=== PATIENT | female | born 1935 | race Caucasian/White ===

== ENCOUNTER 2021-05-03 09:16 | Emergency (ER) | payer MEDICARE ==
[2021-05-03] MEDS ORDERED: traMADol 50 MG Tab PO ONE (09:47)
[2021-05-03] MEDS ORDERED: traMADol 50 MG Tab PO STA (10:05)
[2021-05-03] MEDS ORDERED: Morphine 4 MG/ML VIAL IM STA (10:54)
--- NOTE | 2021-05-03 11:30 | EDM.PDOC ---
ED HPI GENERAL MEDICAL PROBLEM - General Chief Complaint: Lower Extremity Injury/Pain Time Seen by Provider: 05/03/21 09:25 Source of Information: Reports: Patient History Limitations: Reports: No Limitations - History of Present Illness INITIAL COMMENTS - FREE TEXT/NARRATIVE: Patient presented to the ED with her [id number] because of 10/10 left knee pain for the past week. She is taking tylenol 1000 mg and topical diclofenac which don't provide any relief. There is no recent trauma or injury. - Related Data Allergies Allergy/AdvReac Type Severity Reaction Status Date / Time No Known Allergies Allergy Verified 05/03/21 09:36 Home Meds: Home Meds Albuterol/Ipratropium [DuoNeb 3.0-0.5 MG/3 ML] 3 ml INH QID 05/03/21 [History] Diclofenac Sodium [Solaraze] 4 gm TP BID 05/03/21 [History] Digoxin [Lanoxin] 125 mcg PO DAILY 05/03/21 [History] Docusate Sodium/Sennosides [Senna Plus] 2 tab PO BID 05/03/21 [History] Furosemide [Lasix] 80 mg PO DAILY 05/03/21 [History] Morphine Sulfate [Morphine Sulfate ER] 15 mg PO BID PRN #15 tablet.er 05/03/21 [Rx] Potassium Chloride [Klor-Con M20] 20 meq PO DAILY 05/03/21 [History] Spironolactone [Aldactone] 25 mg PO DAILY 05/03/21 [History] Warfarin Sodium [Jantoven] 2 mg PO ASDIRECTED 05/03/21 [History] polyethylene glycoL 3350 [Clearlax] 17 gm PO ASDIRECTED 05/03/21 [History] traMADol [Ultram] 100 mg PO Q8H PRN #30 tab 05/03/21 [Rx] Social & Family History - Family History Family Medical History: No Pertinent Family History - Tobacco Use Tobacco Use Status *Q: Never Tobacco User - Caffeine Use Caffeine Use: Reports: Coffee - Recreational Drug Use Recreational Drug Use: No Review of Systems - Review of Systems Review Of Systems: See Below Constitutional: Reports: No Symptoms Eyes: Reports: No Symptoms Ears: Reports: No Symptoms Nose: Reports: No Symptoms Mouth/Throat: Reports: No Symptoms Respiratory: Reports: No Symptoms Cardiovascular: Reports: No Symptoms GI/Abdominal: Reports: No Symptoms Genitourinary: Reports: No Symptoms Musculoskeletal: Reports: Other (left knee pain) Neurological: Reports: No Symptoms ED EXAM, GENERAL - Physical Exam Exam: See Below Exam Limited By: No Limitations General Appearance: Alert, No Apparent Distress Ears: Normal External Exam, Normal Canal Nose: Normal Inspection, Normal Mucosa, No Blood Throat/Mouth: Normal Inspection, Normal Lips, Normal Teeth Head: Atraumatic, Normocephalic Neck: Normal Inspection, Supple, Non-Tender, Full Range of Motion Respiratory/Chest: No Respiratory Distress, Lungs Clear, Normal Breath Sounds Cardiovascular: Normal Peripheral Pulses, Regular Rate, Rhythm, No Edema, No Gallop Back Exam: Normal Inspection, Full Range of Motion Extremities: Other (tenderness of the entire left knee) Neurological: Alert, Oriented, CN II-XII Intact Course - Vital Signs Text/Narrative:: Tramadol 100 mg PO x1 Morphine 4 mg IM x1 Last Recorded V/S: Last Vital Signs Temp 36.7 C 05/03/21 09:17 Pulse 72 05/03/21 09:17 Resp 20 05/03/21 09:17 BP 156/68 H 05/03/21 09:17 Pulse Ox 95 05/03/21 09:17 - Orders/Labs/Meds Meds: Medications Discontinued Medications Generic Name Dose Route Start Last Admin Trade Name Didier PRN Reason Stop Dose Admin Morphine Sulfate 4 mg 05/03/21 10:54 05/03/21 11:06 Morphine 4 Mg/Ml Vial IM 05/03/21 10:55 4 mg NOW STA Administration Tramadol HCl 100 mg 05/03/21 09:47 Tramadol 50 Mg Tab PO 05/03/21 09:48 ONETIME ONE Tramadol HCl 100 mg 05/03/21 10:05 05/03/21 10:20 Tramadol 50 Mg Tab PO 05/03/21 10:06 100 mg NOW STA Administration Departure - Departure Time of Disposition: 11:25 Disposition: Home, Self-Care 01 Condition: Good Clinical Impression: DJD (degenerative joint disease) of knee, Arthritis pain - Discharge Information Prescriptions: Morphine Sulfate [Morphine Sulfate ER] 15 mg PO BID PRN #15 tablet.er PRN Reason: Pain traMADol [Ultram] 100 mg PO Q8H PRN #30 tab PRN Reason: Pain Instructions: Arthritis, [id number] Referrals: Billy Vasquez MD [Primary Care Provider] - Forms: ED Department Discharge Additional Instructions: Please read discharge instructions on DJD/Arthritic Pain Take tramadol 50 mg,2 tablets with Tylenol 1000 mg every 8 hours as needed for mild to moderate pain Take Morphine ER 15 mg twice daily as needed for severe pain Follow up with an Orthopedic doctor who might be able to help you with your knee pain Sepsis Event Note (ED) - Evaluation Sepsis Screening Result: No Definite Risk - Focused Exam Vital Signs: Vital Signs Temp Pulse Resp BP Pulse Ox 05/03/21 09:17 36.7 C 72 20 156/68 H 95
== END 2021-05-03 12:04 | disposition home or self-care (01) ==
LOC: FB.ED 09:16
DX: M17.12 Unilateral primary osteoarthritis, left knee (principal); Z79.899 Other long term (current) drug therapy
CPT/HCPCS: 96372; 99283; 99284; A9270-GY; J2270

== ENCOUNTER 2022-04-30 09:55 | Inpatient (IN) | payer MEDICARE ==
[2022-04-30] MEDS ORDERED: Furosemide 40 MG/4 ML VIAL IVPUSH ONE (10:55)
[2022-04-30 11:43] LABS: BASE EXCESS VENOUS,POC 1 mmol/L (-2 - 3+); PCO2 VENOUS,POC 44 mmHg (41-51); PH VENOUS,POC 7.39 pH Units (7.32-7.43)
[2022-04-30 11:54] LABS: ESTIMATED GFR 54 mL/min (>60)
[2022-04-30 12:06] LABS: CORONAVIRUS COVID-19 NAA NEGATIVE (NEGATIVE)
[2022-04-30] MEDS ORDERED: Warfarin Sliding Scale PO SCH (14:45)
[2022-04-30] MEDS: Furosemide 40 MG/4 ML VIAL IVPUSH SCH (15:32)
[2022-04-30] MEDS: Sodium Chloride 0.9% 10 ML Syringe FLUSH PRN (15:36)
[2022-04-30] MEDS ORDERED: WARFARIN 2 MG PO ONE (17:15)
[2022-04-30] MEDS ORDERED: Warfarin 3 MG Tab PO ONE (17:15)
[2022-04-30] MEDS: Albuterol/Ipratropium 3.0-0.5 MG/3 ML Neb Soln INH SCH ×2 (17:37→20:28)
[2022-04-30] MEDS ORDERED: Docusate Sodium 100 MG Cap PO SCH (21:00)
[2022-05-01 06:53] LABS: ESTIMATED GFR 61 mL/min (>60)
[2022-05-01] MEDS: Furosemide 40 MG/4 ML VIAL IVPUSH SCH ×2 (08:08→14:03)
[2022-05-01] MEDS: Spironolactone 25 MG Tab PO SCH (08:08)
[2022-05-01] MEDS: Docusate Sodium 100 MG Cap PO SCH ×2 (08:09→20:07)
[2022-05-01] MEDS: Albuterol/Ipratropium 3.0-0.5 MG/3 ML Neb Soln INH SCH ×4 (08:09→20:07)
[2022-05-01] MEDS: Digoxin 125 MCG Tab PO SCH (08:10)
[2022-05-01] MEDS: Potassium Chloride 20 MEQ Tab.ER PO SCH (08:10)
[2022-05-01] MEDS: Sodium Chloride 0.9% 10 ML Syringe FLUSH PRN (08:11)
[2022-05-01] MEDS ORDERED: Polyethylene Glycol 3350 Powder 17 GM Packet PO PRN (09:45)
[2022-05-01] MEDS: Acetaminophen 500 MG Tab PO SCH ×2 (10:54→20:05)
[2022-05-01] MEDS ORDERED: WARFARIN 2 MG PO ONE (16:00)
[2022-05-02 06:49] LABS: ESTIMATED GFR 48 mL/min (>60)
[2022-05-02] MEDS: Furosemide 40 MG/4 ML VIAL IVPUSH SCH ×2 (08:25→14:11)
[2022-05-02] MEDS: Sodium Chloride 0.9% 10 ML Syringe FLUSH PRN ×2 (08:29→14:14)
[2022-05-02] MEDS ORDERED: Polyethylene Glycol 3350 Powder 238 GM Bot PO SCH (09:00)
[2022-05-02] MEDS: Spironolactone 25 MG Tab PO SCH (09:25)
[2022-05-02] MEDS: Potassium Chloride 20 MEQ Tab.ER PO SCH (09:26)
[2022-05-02] MEDS: Docusate Sodium 100 MG Cap PO SCH ×2 (09:26→20:35)
[2022-05-02] MEDS: Digoxin 125 MCG Tab PO SCH (09:27)
[2022-05-02] MEDS: Acetaminophen 500 MG Tab PO SCH ×2 (09:28→20:35)
[2022-05-02] MEDS: Albuterol/Ipratropium 3.0-0.5 MG/3 ML Neb Soln INH SCH ×4 (09:39→20:35)
[2022-05-02] MEDS ORDERED: Warfarin 2 MG Tab PO ONE (16:00)
[2022-05-03 06:46] LABS: ESTIMATED GFR 54 mL/min (>60)
[2022-05-03] MEDS: Furosemide 40 MG/4 ML VIAL IVPUSH SCH ×2 (07:12→14:52)
[2022-05-03] MEDS: Albuterol/Ipratropium 3.0-0.5 MG/3 ML Neb Soln INH SCH ×4 (07:15→20:37)
[2022-05-03] MEDS: Sodium Chloride 0.9% 10 ML Syringe FLUSH PRN ×2 (07:45→14:57)
[2022-05-03] MEDS: Spironolactone 25 MG Tab PO SCH (09:25)
[2022-05-03] MEDS: Potassium Chloride 20 MEQ Tab.ER PO SCH (09:25)
[2022-05-03] MEDS: Docusate Sodium 100 MG Cap PO SCH ×2 (09:25→20:36)
[2022-05-03] MEDS: Digoxin 125 MCG Tab PO SCH (09:26)
[2022-05-03] MEDS: Acetaminophen 500 MG Tab PO SCH ×2 (09:26→20:36)
[2022-05-03] MEDS ORDERED: Warfarin 2 MG Tab PO ONE (16:00)
[2022-05-04] MEDS: Furosemide 40 MG/4 ML VIAL IVPUSH SCH (06:17)
[2022-05-04] MEDS: Albuterol/Ipratropium 3.0-0.5 MG/3 ML Neb Soln INH SCH ×4 (06:24→20:40)
[2022-05-04] MEDS: Sodium Chloride 0.9% 10 ML Syringe FLUSH PRN (06:24)
[2022-05-04] MEDS: Potassium Chloride 20 MEQ Tab.ER PO SCH (08:54)
[2022-05-04] MEDS: Spironolactone 25 MG Tab PO SCH (08:54)
[2022-05-04] MEDS: Digoxin 125 MCG Tab PO SCH (08:55)
[2022-05-04] MEDS: Docusate Sodium 100 MG Cap PO SCH ×2 (08:55→20:39)
[2022-05-04] MEDS: Acetaminophen 500 MG Tab PO SCH ×2 (09:00→20:41)
[2022-05-04] MEDS ORDERED: Magnesium Hydroxide 400 MG/5 ML Susp 30 ML Cup PO PRN (09:43)
[2022-05-04] MEDS: Polyvinyl Alcohol 1.4% Ophth Soln 15 ML Bottle EYEBOTH SCH ×3 (12:58→20:40)
[2022-05-04] MEDS: Torsemide 20 MG Tab PO SCH (14:09)
[2022-05-04] MEDS ORDERED: Warfarin 2 MG Tab PO ONE (16:00)
[2022-05-05] MEDS: Albuterol/Ipratropium 3.0-0.5 MG/3 ML Neb Soln INH SCH (06:26)
[2022-05-05 06:55] LABS: ESTIMATED GFR 61 mL/min (>60)
[2022-05-05] MEDS: Spironolactone 25 MG Tab PO SCH (08:40)
[2022-05-05] MEDS: Potassium Chloride 20 MEQ Tab.ER PO SCH (08:40)
[2022-05-05] MEDS: Docusate Sodium 100 MG Cap PO SCH (08:40)
[2022-05-05] MEDS: Digoxin 125 MCG Tab PO SCH (08:41)
[2022-05-05] MEDS: Acetaminophen 500 MG Tab PO SCH (08:42)
[2022-05-05] MEDS: Torsemide 20 MG Tab PO SCH (08:47)
[2022-05-05] MEDS: Polyvinyl Alcohol 1.4% Ophth Soln 15 ML Bottle EYEBOTH SCH (09:05)
== END 2022-05-05 09:31 | disposition home health service (06) | DRG 291 ==
LOC: FB.ED 09:55 → FB.MS 12:14 → OBSVTOIN 05-02 08:36
PROVIDERS: ADMIT Family Medicine; ATTEND Family Medicine
DX: I11.0 Hypertensive heart disease with heart failure (principal); J96.01 Acute respiratory failure with hypoxia; I50.33 Acute on chronic diastolic (congestive) heart failure; E87.1 Hypo-osmolality and hyponatremia; I48.91 Unspecified atrial fibrillation; I48.11 Longstanding persistent atrial fibrillation; Z66 Do not resuscitate; Z20.822 Contact with and (suspected) exposure to COVID-19; R32 Unspecified urinary incontinence; M19.90 Unspecified osteoarthritis, unspecified site; M17.10 Unilateral primary osteoarthritis, unspecified knee; J45.909 Unspecified asthma, uncomplicated; R87.1 Abnormal level of hormones in specimens from female genital organs; I27.20 Pulmonary hypertension, unspecified; E78.00 Pure hypercholesterolemia, unspecified; E78.5 Hyperlipidemia, unspecified; E66.9 Obesity, unspecified; F41.9 Anxiety disorder, unspecified; Z79.01 Long term (current) use of anticoagulants; Z79.899 Other long term (current) drug therapy; Z90.49 Acquired absence of other specified parts of digestive tract; Z90.710 Acquired absence of both cervix and uterus; Z68.33 Body mass index [BMI] 33.0-33.9, adult
CPT/HCPCS: 0240U; 36415; 71045; 80048; 80053; 83735; 83880; 84484; 85025; 85610; 86140; 93005; 93010; 93306; 94640; 94762; 96374; 96376; 99219; 99225; 99232; 99238; 99284; 99285-25; A9270-GY; G0378; J1940; J3490; J7620